=== PATIENT | female | born 2000 | race Caucasian/White ===

== ENCOUNTER → 2024-02-06 | Outpatient (CLI) | payer BC | END | disposition home or self-care (01) | LOC: US 09:34 | PROVIDERS: ATTEND Obstetrics & Gynecology Obstetrics | DX: N63.20 Unspecified lump in the left breast, unspecified quadrant (principal) | CPT/HCPCS: 76642 ==

== ENCOUNTER → 2024-03-08 | Day surgery (SDC) | payer BC ==
[~2024-03-08] MED LIST: LIDOCAINE HCL/EPINEPHRINE 1%-EPI 1:100,000 20 ML VIAL ONE; SODIUM BICARBONATE 4% 2.4MEQ/5ML VIAL IV ONE
== END | disposition home or self-care (01) ==
LOC: RAD 10:27
PROVIDERS: ATTEND Obstetrics & Gynecology Obstetrics
DX: C50.912 Malignant neoplasm of unspecified site of left female breast (principal); Z79.899 Other long term (current) drug therapy
CPT/HCPCS: 88305; 19083; J3490 ×2